=== PATIENT | male | born 1950 | race Caucasian/White ===

== ENCOUNTER 2023-06-15 16:37 | Inpatient (IN) | payer MEDICARE, BC ==
[~2023-06-15] VITALS: Ht 185.4 cm; Wt 73.3 kg
[2023-06-15] MEDS ORDERED: methylPREDNISolone sod succ 125mg/2ml vial IV ONE (16:55)
[2023-06-15] MEDS ORDERED: albuterol 2.5 MG/3 ML nebule NEB ONE (17:40)
[2023-06-15 18:30] LABS: BASOPHILS % (AUTO) 0.2 % (0-1); EOSINOPHILS % (AUTO) 0.2 % (0-6); HEMATOCRIT 49.9 % (42.0-52.0); HEMOGLOBIN 17.1 g/dl (14.0-17.9); LYMPHOCYTES # (AUTO) 1.1 X10'3 (1.1-4.8); LYMPHOCYTES % (AUTO) 10.9 % (21-51); MEAN CORPUSCULAR HEMOGLOBIN 31.5 PG (27.0-31.0); MEAN CORPUSCULAR HGB CONC 34.3 g/dL (33.0-36.5); MEAN CORPUSCULAR VOLUME 91.7 FL (78-98); MONOCYTES # (AUTO) 1.1 X10'3 (0-0.9); MONOCYTES % (AUTO) 11.8 % (2-12); NEUTROPHILS # (AUTO) 7.4 X10'3 (1.8-7.7); NEUTROPHILS % (AUTO) 76.9 % (42-75); PLATELET COUNT 215 X10'3 (140-440); RED BLOOD COUNT 5.44 X10'6 (4.70-6.10); RED CELL DISTRIBUTION WIDTH 13.2 % (11.5-14.5); WHITE BLOOD COUNT 9.7 X10'3 (4.5-11.0)
[2023-06-15 18:48] LABS: ALANINE AMINOTRANSFERASE 36 U/L (12-78); ALBUMIN 2.8 G/DL (3.4-5.0); ALBUMIN/GLOBULIN RATIO 0.7 (1.1-1.5); ALKALINE PHOSPHATASE 74 IU/L (46-116); ANION GAP 6 (8-16); ASPARTATE AMINO TRANSFERASE 30 U/L (10-37); BILIRUBIN,TOTAL 1.4 MG/DL (0.1-1.0); BLOOD UREA NITROGEN 38 MG/DL (7-18); BUN/CREATININE RATIO 20.5 (10.0-20.0); CALCIUM 9.7 MG/DL (8.5-10.1); CHLORIDE 97 MMOL/L (99-107); CREATININE 1.85 MG/DL (0.60-1.10); GLUCOSE 115 MG/DL (70-104); POTASSIUM 4.4 MMOL/L (3.5-5.1); SODIUM 131 MMOL/L (135-145); TOTAL CARBON DIOXIDE 27.6 MMOL/L (24-32); eCRCL 40 ML/MIN; eGFR 36 ML/MIN
[2023-06-15 18:54] LABS: PRO BRAIN NATRIURETIC PEPTIDE 1611 PG/ML (0-125)
[2023-06-15 19:14] VITALS: PULSE 97; RESP 16; O2SAT 97
[2023-06-15 19:19] VITALS: PULSE 96; RESP 16; O2SAT 97
[2023-06-15] MEDS ORDERED: temazepam 15mg capsule PO PRN (21:00)
[2023-06-15] MEDS ORDERED: ondansetron/PF 4mg/2ml inj IV PRN (22:30)
[2023-06-15] MEDS ORDERED: ondansetron 4mg rapidly disintigrating tab PO PRN (22:30)
[2023-06-15] MEDS ORDERED: mag hydrox/Alum hydrox/simeth 30ml oral suspension PO PRN (22:30)
[2023-06-15] MEDS ORDERED: diphenhydrAMINE 25mg capsule PO PRN (22:30)
[2023-06-15] MEDS: normal saline 1000ml 1,000 ML IV SCH (22:30)
[2023-06-15] MEDS ORDERED: HYDROcodone/acetaminophen 5mg/325mg tablet PO PRN (22:30)
[2023-06-15] MEDS ORDERED: acetaminophen 325mg tablet PO PRN ×2 (22:30)
[2023-06-15] MEDS ORDERED: bisacodyl 10mg suppository rectal RC PRN (22:30)
[2023-06-15] MEDS ORDERED: magnesium hydroxide 30ml (MOM) UD suspension PO PRN (22:30)
[2023-06-15] MEDS ORDERED: morphine 2 MG/ML inj. syringe IV PRN (22:30)
[2023-06-15] MEDS ORDERED: diphenhydrAMINE 50 mg/ml inj IV PRN (22:30)
[2023-06-15] MEDS ORDERED: acetaminophen 650mg rectal suppository RC PRN (22:30)
[2023-06-15] MEDS ORDERED: ipratropium/albuterol 3ml nebule NEB PRN (22:30)
[2023-06-15] MEDS ORDERED: heparin 10,000 units/1 ML INJ IV ONE (22:40)
[2023-06-15] MEDS ORDERED: heparin 10,000 units/1 ML INJ IV PRN (22:40)
[2023-06-15 22:52] LABS: BASOPHILS % (AUTO) 0.2 % (0-1); EOSINOPHILS % (AUTO) 0.2 % (0-6); HEMATOCRIT 48.7 % (42.0-52.0); HEMOGLOBIN 16.5 g/dl (14.0-17.9); LYMPHOCYTES # (AUTO) 1.2 X10'3 (1.1-4.8); LYMPHOCYTES % (AUTO) 12.9 % (21-51); MEAN CORPUSCULAR HEMOGLOBIN 31.2 PG (27.0-31.0); MEAN CORPUSCULAR HGB CONC 33.9 g/dL (33.0-36.5); MEAN CORPUSCULAR VOLUME 92.3 FL (78-98); MEAN PLATELET VOLUME 9.1 FL (7.4-10.4); MONOCYTES % (AUTO) 11.3 % (2-12); NEUTROPHILS # (AUTO) 6.9 X10'3 (1.8-7.7); NEUTROPHILS % (AUTO) 75.4 % (42-75); PLATELET COUNT 231 X10'3 (140-440); RED BLOOD COUNT 5.28 X10'6 (4.70-6.10); RED CELL DISTRIBUTION WIDTH 13.3 % (11.5-14.5); WHITE BLOOD COUNT 9.2 X10'3 (4.5-11.0)
[2023-06-15] MEDS ORDERED: heparin 25,000 UNIT/250ml bag 250 ML IV PRN (23:00)
[2023-06-15 23:01] LABS: HEMOGLOBIN A1C 5.6 % (4.5-6.2)
[2023-06-15 23:08] LABS: CREATINE KINASE 162 U/L (39-308); ETHANOL < 10 MG/DL (<10); LIPASE 28 U/L (16-77); MAGNESIUM 2.2 MG/DL (1.5-2.4); PHOSPHORUS 3.2 MG/DL (2.3-4.5); THYROID STIMULATING HORMONE 1.08 ulU/ml (0.34-4.50)
[2023-06-15 23:12] LABS: APTT 30 SECONDS (22-32); INR 1.3 INR; PROTHROMBIN TIME 14.1 SECONDS (9.0-12.0)
[2023-06-15 23:18] LABS: D-DIMER 1.62 MG/L FEU (0-0.50)
[2023-06-15 23:36] VITALS: PULSE 92; RESP 16; O2SAT 97
[2023-06-15] MEDS ORDERED: ringers solution, lacted 1,000 ML IV ONE (23:50)
[2023-06-16] VITALS (13 sets, daily range): BP systolic 112–132; BP diastolic 65–91; PULSE 84–107; RESP 13–20; TEMP 96.8–98.5; O2SAT 96–99
[2023-06-16 01:12] LABS: URINE AMPHETAMINE SCREEN NEGATIVE (Neg); URINE BARBITUATE SCREEN NEGATIVE (Neg); URINE BENZODIAZEPINES SCREEN NEGATIVE (Neg); URINE CANNABINOID SCREEN POSITIVE (Neg); URINE COCAINE SCREEN NEGATIVE (Neg); URINE METHADONE SCREEN NEGATIVE (Neg); URINE OPIATE SCREEN NEGATIVE (Neg); URINE PHENCYCLIDINE SCREEN NEGATIVE (Neg)
[2023-06-16] MEDS ORDERED: CefTRIAXone/D5W-Rocephin 1gm 50 ML IV SCH (08:00)
[2023-06-16] MEDS ORDERED: azithromycin/NS 500mg/250ml 250 ML IV SCH (08:00)
[2023-06-16 08:13] LABS: BASOPHILS % (AUTO) 0.2 % (0-1); EOSINOPHILS % (AUTO) 0 % (0-6); HEMATOCRIT 52.4 % (42.0-52.0); HEMOGLOBIN 17.7 g/dl (14.0-17.9); LYMPHOCYTES # (AUTO) 0.5 X10'3 (1.1-4.8); LYMPHOCYTES % (AUTO) 8.1 % (21-51); MEAN CORPUSCULAR HEMOGLOBIN 31.3 PG (27.0-31.0); MEAN CORPUSCULAR HGB CONC 33.8 g/dL (33.0-36.5); MEAN CORPUSCULAR VOLUME 92.7 FL (78-98); MEAN PLATELET VOLUME 8.9 FL (7.4-10.4); MONOCYTES # (AUTO) 0.1 X10'3 (0-0.9); MONOCYTES % (AUTO) 2.3 % (2-12); NEUTROPHILS # (AUTO) 5.1 X10'3 (1.8-7.7); NEUTROPHILS % (AUTO) 89.4 % (42-75); PLATELET COUNT 226 X10'3 (140-440); RED BLOOD COUNT 5.65 X10'6 (4.70-6.10); RED CELL DISTRIBUTION WIDTH 13.3 % (11.5-14.5); WHITE BLOOD COUNT 5.7 X10'3 (4.5-11.0)
[2023-06-16 08:50] LABS: ALANINE AMINOTRANSFERASE 34 U/L (12-78); ALBUMIN 2.9 G/DL (3.4-5.0); ALBUMIN/GLOBULIN RATIO 0.7 (1.1-1.5); ALKALINE PHOSPHATASE 78 IU/L (46-116); ANION GAP 10 (8-16); ASPARTATE AMINO TRANSFERASE 22 U/L (10-37); BILIRUBIN,TOTAL 1.2 MG/DL (0.1-1.0); BLOOD UREA NITROGEN 36 MG/DL (7-18); BUN/CREATININE RATIO 19.9 (10.0-20.0); CALCIUM 9.7 MG/DL (8.5-10.1); CHLORIDE 98 MMOL/L (99-107); CHOL/HDL RATIO 3.9 (0.00-4.99); CHOLESTEROL 133 MG/DL (0-200); CREATININE 1.81 MG/DL (0.60-1.10); GLUCOSE 182 MG/DL (70-104); HDL CHOLESTEROL 34 MG/DL (35-60); LDL CHOLESTEROL 77 MG/DL (50-100); POTASSIUM 4.7 MMOL/L (3.5-5.1); SODIUM 132 MMOL/L (135-145); TOTAL CARBON DIOXIDE 23.7 MMOL/L (24-32); TOTAL PROTEIN 7.3 G/DL (6.4-8.2); TRIGLYCERIDES 83 MG/DL (20-135); eCRCL 41 ML/MIN; eGFR 37 ML/MIN
[2023-06-16] MEDS: normal saline 1000ml 1,000 ML IV SCH ×2 (08:51→20:30)
[2023-06-16] MEDS ORDERED: methylPREDNISolone sod succ/PF 40mg inj. IV SCH (10:05)
[2023-06-16] MEDS ORDERED: albuterol 2.5 MG/3 ML nebule NEB PRN (10:15)
[2023-06-16] MEDS: pantoprazole 40mg Tablet.DR PO SCH (10:25)
[2023-06-16] MEDS: docusate sod 100mg capsule PO SCH ×2 (10:25→21:22)
[2023-06-16] MEDS: carVEDilol 3.125mg tablet PO SCH ×2 (10:30→21:22)
[2023-06-16] MEDS: ipratropium/albuterol 3ml nebule NEB SCH ×3 (10:36→21:31)
[2023-06-16 15:01] LABS: BILIRUBIN,URINE NEGATIVE (Neg); CLARITY,URINE CLEAR (Clear); COLOR,URINE YELLOW (Yellow); GLUCOSE, URINE >=1000 mg/dl (Neg); KETONES,URINE NEGATIVE (Neg); LEUKOCYTE ESTERASE ,URINE NEGATIVE (Neg); NITRITES, URINE NEGATIVE (Neg); OCCULT BLOOD,URINE NEGATIVE (Neg); PH,URINE 5.5 (4.8-8.0); PROTEIN,URINE NEGATIVE (Neg); UROBILINOGEN,URINE 0.2 E.U/dL (0.2-1.0)
[2023-06-16 15:06] LABS: UA COLLECTION TYPE NON-SPECIFIED
[2023-06-16 15:29] LABS: SQUAMOUS EPITHELIAL CELL,UR FEW /LPF (FEW)
[2023-06-16 15:31] LABS: RBC,URINE 0-2 /HPF (0-2)
[2023-06-16 15:32] LABS: MUCUS STRANDS FEW /LPF (Neg)
[2023-06-16 15:38] LABS: CAL OXALATE CRYSTALS FEW /HPF (NEGATIVE)
[2023-06-16 15:42] LABS: HYALINE CASTS 0-3 /LPF (NEGATIVE)
[2023-06-16 15:44] LABS: BACTERIA,URINE FEW /HPF (Neg)
[2023-06-16 15:47] LABS: RENAL CELLS, URINE FEW /HPF; WBC,URINE 0-4 /HPF (0-4)
[2023-06-16] MEDS: methylPREDNISolone sod succ/PF 40mg inj. IV SCH (21:21)
[2023-06-17] VITALS (7 sets, daily range): BP systolic 123–143; BP diastolic 74–96; PULSE 80–93; RESP 12–19; TEMP 97.5–98.1; O2SAT 95–99
[2023-06-17 05:21] LABS: BASOPHILS % (AUTO) 0.2 % (0-1); EOSINOPHILS % (AUTO) 0 % (0-6); HEMATOCRIT 43.6 % (42.0-52.0); HEMOGLOBIN 14.6 g/dl (14.0-17.9); LYMPHOCYTES # (AUTO) 0.4 X10'3 (1.1-4.8); LYMPHOCYTES % (AUTO) 2.9 % (21-51); MEAN CORPUSCULAR HEMOGLOBIN 30.9 PG (27.0-31.0); MEAN CORPUSCULAR HGB CONC 33.6 g/dL (33.0-36.5); MEAN PLATELET VOLUME 8.8 FL (7.4-10.4); MONOCYTES # (AUTO) 0.5 X10'3 (0-0.9); MONOCYTES % (AUTO) 3.4 % (2-12); NEUTROPHILS % (AUTO) 93.5 % (42-75); PLATELET COUNT 213 X10'3 (140-440); RED BLOOD COUNT 4.74 X10'6 (4.70-6.10); RED CELL DISTRIBUTION WIDTH 13.1 % (11.5-14.5); WHITE BLOOD COUNT 14.9 X10'3 (4.5-11.0)
[2023-06-17 05:27] LABS: ALANINE AMINOTRANSFERASE 34 U/L (12-78); ALBUMIN 2.2 G/DL (3.4-5.0); ALBUMIN/GLOBULIN RATIO 0.6 (1.1-1.5); ALKALINE PHOSPHATASE 59 IU/L (46-116); ANION GAP 7 (8-16); ASPARTATE AMINO TRANSFERASE 16 U/L (10-37); BILIRUBIN,TOTAL 0.5 MG/DL (0.1-1.0); BLOOD UREA NITROGEN 38 MG/DL (7-18); BUN/CREATININE RATIO 22.8 (10.0-20.0); CHLORIDE 103 MMOL/L (99-107); CREATININE 1.67 MG/DL (0.60-1.10); GLUCOSE 201 MG/DL (70-104); POTASSIUM 4.5 MMOL/L (3.5-5.1); SODIUM 132 MMOL/L (135-145); TOTAL CARBON DIOXIDE 21.8 MMOL/L (24-32); TOTAL PROTEIN 5.6 G/DL (6.4-8.2); eCRCL 45 ML/MIN; eGFR 41 ML/MIN
[2023-06-17] MEDS: ipratropium/albuterol 3ml nebule NEB SCH ×2 (07:34→11:00)
[2023-06-17] MEDS ORDERED: azithromycin 250mg tablet PO SCH (08:00)
[2023-06-17] MEDS ORDERED: CefTRIAXone/D5W-Rocephin 1gm 50 ML IV SCH (08:00)
[2023-06-17] MEDS: docusate sod 100mg capsule PO SCH (09:13)
[2023-06-17] MEDS: methylPREDNISolone sod succ/PF 40mg inj. IV SCH (09:13)
[2023-06-17] MEDS: pantoprazole 40mg Tablet.DR PO SCH (09:14)
[2023-06-17] MEDS: carVEDilol 3.125mg tablet PO SCH (09:14)
[2023-06-17] MEDS: normal saline 1000ml 1,000 ML IV SCH (09:24)
[2023-06-17] MEDS ORDERED: RIVA15TA PO (13:10)
[2023-06-17] MEDS ORDERED: BUDE10.2 INH (13:14)
[2023-06-17] MEDS ORDERED: PRED10TA23 PO (13:21)
[2023-06-17] MEDS ORDERED: rivaroxaban 20mg tablet PO SCH (18:00)
== END 2023-06-17 16:37 | disposition home or self-care (01) | DRG 693 ==
LOC: ER 16:38 → ED HOLD 22:34 → PCU 3S 06-16 08:03
PROVIDERS: ADMIT Family Medicine; ATTEND Family Medicine
DX: N13.2 Hydronephrosis with renal and ureteral calculous obstruction (principal); J12.1 Respiratory syncytial virus pneumonia; E87.1 Hypo-osmolality and hyponatremia; I50.32 Chronic diastolic (congestive) heart failure; J45.901 Unspecified asthma with (acute) exacerbation; N17.9 Acute kidney failure, unspecified; K40.90 Unilateral inguinal hernia, without obstruction or gangrene, not specified as recurrent; K57.30 Diverticulosis of large intestine without perforation or abscess without bleeding; Z20.822 Contact with and (suspected) exposure to COVID-19; N18.9 Chronic kidney disease, unspecified; E88.09 Other disorders of plasma-protein metabolism, not elsewhere classified; I48.91 Unspecified atrial fibrillation; F12.10 Cannabis abuse, uncomplicated; Z71.51 Drug abuse counseling and surveillance of drug abuser
CPT/HCPCS: 36415; 71045; 71250; 74176; 80053; 80061; 80305; 80320; 81001; 82550; 83036; 83605; 83690; 83735; 83880; 84100; 84145; 84443; 84484; 85025; 85379; 85610; 85730; 87040; 87634; 87811; 93005; 93306; 94640; 94760; 97161; 97530; 99285; G0378; J0456; J0696; J1644; J2920; J2930; J7030; J7120